=== PATIENT | female | born 1985 | race Caucasian/White ===

== ENCOUNTER 2023-05-08 19:31 | Emergency (ER) | payer MEDICAID, SELFPAY ==
[2023-05-08 19:32] VITALS: BP 120/78; PULSE 100; RESP 18; TEMP 36.8; O2SAT 97; BMI 45.6
--- NOTE | 2023-05-08 19:43 | XR_ITS ---
PROCEDURE INFORMATION: Exam: XR Chest Exam date and time: 05/08/2023 7:41 PM Age: 37 years old Clinical indication: On breathing; Patient HX: Lt sided chest pain on inspiration x 1 wk, nkt. Smoker, 0 CA HX; Additional info: Chest wall pain TECHNIQUE: Imaging protocol: Radiologic exam of the chest. Views: 2 views. COMPARISON: No relevant prior studies available. FINDINGS: Lungs: No consolidation. Pleural spaces: No pneumothorax. Heart/Mediastinum: No cardiomegaly. Bones/joints: Surgical clips overlying the right upper chest and neck. No acute fracture. IMPRESSION: No acute findings.
[2023-05-08 19:47] LABS: Microscopic, Urine URINE MICROSCOPIC (MICROSCOPIC)
[2023-05-08 19:55] LABS: Basophils # 0.1 K/mm3 (0-0.2); Basophils % 0.9 % (0.1-2.0); Eosinophils # 0.5 K/mm3 (0.0-0.4); Eosinophils % 5.2 % (0.1-12.0); Hematocrit 42.4 % (37.0-47.0); Hemoglobin 14.2 g/dL (12.2-16.2); Lymphocytes # 3.1 K/mm3 (0.7-4.5); Lymphocytes % 32.5 % (10-50); Mean Corpuscular HGB Conc 33.5 g/dL (31.8-35.4); Mean Corpuscular Hemoglobin 29.7 pg (27.0-31.2); Mean Corpuscular Volume 88.4 fl (81-99); Mean Platelet Volume 9.1 fl (7.4-10.4); Monocytes # 0.6 K/mm3 (0.1-1.0); Monocytes % 6.4 % (1.7-9.3); Neutrophils # 5.2 K/mm3 (1.8-7.8); Neutrophils % 55.1 % (37.0-80.0); Platelet Count 286 K/mm3 (142-424); Red Blood Count 4.79 M/mm3 (4.20-5.40); Red Cell Distribution Width 14.5 % (11.5-17.5); White Blood Count 9.4 K/mm3 (4.8-10.8)
[2023-05-08 19:56] LABS: Appearance,Urine CLEAR (Clear); Bilirubin,Urine Negative (Negative); Blood, Urine TRACE-I (Negative); Color,Urine YELLOW (Yellow); Glucose,Urine (UA) Negative (Negative); Ketones,Urine Negative (Negative); Leukocyte Esterase,Urine Negative (Negative); Nitrate,Urine Negative (Negative); PH,Urine 5.5 (5.0-8.5); Protein,Urine Negative (Negative); Specific Gravity, Urine 1.025 (1.005-1.030); Urobilinogen,Urine 0.2 EU/dl (0.2)
[2023-05-08 20:00] LABS: Urine Pregnancy, HCG Qual. Negative (Negative)
[2023-05-08 20:10] LABS: Anion Gap 14.2 mEq/L (5-15); Blood Urea Nitrogen 12 mg/dl (7-17); Carbon Dioxide 22 mmol/L (22.0-30.0); Chloride 106 mmol/L (98-107); Creatinine Clearance Estimated 109 mL/min (50-200); Estimated Glomerular Filt Rate 93 ml/min (>60); Potassium 4.2 mmoL/L (3.5-5.1); Sodium 138 mmol/L (136-145)
[2023-05-08 20:11] LABS: Alanine Aminotransferase 22 U/L (12-78); Albumin Level 4.4 g/dl (3.5-5.0); Albumin/Globulin Ratio 1.3 (1.1-1.8); Alkaline Phosphatase 66 U/L (38-126); Amylase 80 U/L (30-110); Aspartate Amino Transferase 39 U/L (14-36); Bilirubin,Total 0.3 mg/dl (0.2-1.3); Calcium 8.9 mg/dl (8.4-10.2); GFR (African American) 113 ML/MIN (>60); Globulin 3.3 g/dL (1.3-3.2); Glucose 107 mg/dl (74-100); Lipase 110 U/L (23-300); Total Protein,Serum 7.7 g/dl (6.3-8.2)
--- NOTE | 2023-05-08 20:15 | CT_ITS ---
PROCEDURE INFORMATION: Exam: CT Abdomen And Pelvis Without Contrast Exam date and time: 05/08/2023 8:25 PM Age: 37 years old Clinical indication: Abdominal pain; Patient HX: PT states upper left sided pain TECHNIQUE: Imaging protocol: Computed tomography of the abdomen and pelvis without contrast. Radiation optimization: All CT scans at this facility use at least one of these dose optimization techniques: automated exposure control; mA and/or kV adjustment per patient size (includes targeted exams where dose is matched to clinical indication); or iterative reconstruction. REPORTING DATA: Count of CT and Cardiac NM exams in prior 12 months: This patient has received 0 known CTs and 0 known cardiac nuclear medicine studies in the 12 months prior to the current study. COMPARISON: CR XR CHEST 2V 05/08/2023 7:41 PM FINDINGS: Liver: Hepatic steatosis. Gallbladder and bile ducts: Normal. No calcified stones. No ductal dilation. Pancreas: Normal. No ductal dilation. Spleen: Normal. No splenomegaly. Adrenal glands: Normal. No mass. Kidneys and ureters: Normal. No hydronephrosis. Stomach and bowel: Unremarkable. No obstruction. No mucosal thickening. Appendix: Postoperative changes consistent with appendectomy. Intraperitoneal space: Unremarkable. No free air. No significant fluid collection. Vasculature: Unremarkable. No abdominal aortic aneurysm. Lymph nodes: Unremarkable. No enlarged lymph nodes. Urinary bladder: Unremarkable as visualized. Reproductive: Unremarkable as visualized. Bones/joints: Thoracic spondylosis partially visualized. Soft tissues: Small fat filled umbilical hernia. IMPRESSION: No evidence of acute abnormality.
--- NOTE | 2023-05-08 20:15 | CT_ITS ---
PROCEDURE INFORMATION: Exam: CT Chest Without Contrast; Diagnostic Exam date and time: 05/08/2023 8:25 PM Age: 37 years old Clinical indication: Pain; Left-sided; Additional info: Left sided pain TECHNIQUE: Imaging protocol: Diagnostic computed tomography of the chest without contrast. Radiation optimization: All CT scans at this facility use at least one of these dose optimization techniques: automated exposure control; mA and/or kV adjustment per patient size (includes targeted exams where dose is matched to clinical indication); or iterative reconstruction. REPORTING DATA: Count of CT and Cardiac NM exams in prior 12 months: This patient has received 0 known CTs and 0 known cardiac nuclear medicine studies in the 12 months prior to the current study. COMPARISON: CR XR CHEST 2V 05/08/2023 7:41 PM FINDINGS: Lungs: Dependent hypoventilatory changes. No lobar consolidation. Pleural spaces: No pneumothorax. No pleural effusion. Heart: No cardiomegaly. No pericardial effusion. Lymph nodes: No enlarged lymph nodes. Vasculature: Limited evaluation without contrast. No aortic aneurysm. Bones/joints: Chronic changes. No acute fracture. Soft tissues: Extensive subcutaneous adipose extending beyond the field of view. IMPRESSION: No acute findings.
[2023-05-08 20:21] LABS: RBC,Urine Occasional #/hpf (0-3); WBC,Urine Occasional #/hpf (0-3)
--- NOTE | 2023-05-08 20:59 | ECG_ITS ---
APPROVED REPORT Exam: Resting ECG HR:69 bpm ECG Measurements Heart Rate 69 AXES CA 160 P 42 QRSd 91 QRS 89 QT 419 T 29 QTc 439 Conclusion SINUS RHYTHM NONSPECIFIC T-WAVE ABNORMALITY BORDERLINE ECG UNCONFIRMED REPORT Electronically signed by : Omar Fair MD 05/08/2023 21:44:31
[2023-05-08 21:34] LABS: Troponin I < 0.01 ng/ml (0.00-0.034)
--- NOTE | 2023-05-08 21:48 | HMH.EDGENADL ---
Discharge Plan Disposition Patient Disposition: Home, Self-Care Condition: Good Prescriptions Prescriptions: New methylprednisolone [Medrol (Navdeep)] 4 mg tablets,dose pack 4 mg PO BID Qty: 21 0RF metaxalone 800 mg tablet 800 mg PO QID PRN (Reason: muscle pain) Qty: 40 0RF hydrocodone-acetaminophen 5-325 mg tablet 1 tab PO Q8H PRN (Reason: pain) Qty: 10 0RF No Action losartan 50 mg tablet 50 mg PO DAILY Label Comments: TAKE 1 TABLET BY MOUTH ONCE DAILY celecoxib 200 mg capsule 200 mg PO DAILYP PRN (Reason: Pain) Label Comments: TAKE 1 CAPSULE BY MOUTH ONCE DAILY NEEDED FOR PAIN amlodipine 5 mg tablet 5 mg PO DAILY Label Comments: TAKE 1 TABLET BY MOUTH ONCE DAILY propranolol 10 mg tablet 10 mg PO DAILY Label Comments: TAKE 1 TABLET BY MOUTH ONCE DAILY meclizine 25 mg tablet 25 mg PO Q8HP PRN (Reason: Dizziness) Label Comments: TAKE 1 TABLET BY MOUTH EVERY 8 HOURS NEEDED Referrals Follow up/Referrals: Dl Hays [Primary Care Provider] - See instructions Activity Restrictions/Add. Instructions Additional Instructions/Restrictions: You have pain in the left rib. This is reproducible on exam on exam. There is no sob or increase heart rate to indicate a clot in your lung. If you get short of breath then come back to the immediately to the ER for CTA of the chest. Continue steroids and muscle relaxer and ibuprofen and Antelope only at home. He can be off work till next month Clinical Impressions Clinical Impression: Contusion of rib on left side, Acute abdominal pain in left flank, Chronic bronchitis, simple Stand Alone Forms Stand Alone Forms: Work/School Release Discharge ED Provider: Wanda Rodriguez Adult HPI General Chief complaint: PAIN Stated complaint: left side pain Time Seen by Provider: 05/08/23 20:45 Mode of Arrival: Ambulatory Source of Information: Patient Limitations: No Limitations Description of Symptoms (Recalled from ER Triage Doc. by RN): 37 F presents with left flank pain that radiates to her anterio-lateral chest wall. This started Saturday and has gotten worse. Patient reports nausea from the pain. Denies fever, chills, or vomiting. History of Present Illness HPI narrative: Patient is a 37-year-old female who is complaining left-sided chest pain rib pain going to the left flank. Patient's been having the symptoms of cough for the past 2 to 3 weeks. With the cough patient's been having some left-sided chest pain. Patient went to another hospital in [facility] was diagnosed with pleurisy. He was given steroids and inhaler. Patient stated that pain got better for the muscle of the abdomen but there is no more localized pain to the rib. She had no trauma or fall. She has been coughing a lot. Nonproductive no fever chills. She has no shortness of breath but hurts when she takes a deep breath Onset (ago): week(s) Location: chest, back and abdomen Radiation: back and abdomen Severity: moderate Severity scale (1-10): 8 Quality: stabbing and sharp Consistency: constant Relieving factors: none and movement Exacerbating factors: none Associated symptoms: chest pain and cough Treatments prior to arrival: NSAID Related Data Home Medications Medication Instructions Recorded Confirmed amlodipine 5 mg tablet 5 mg PO DAILY High blood pressure 05/08/23 05/08/23 celecoxib 200 mg capsule 200 mg PO DAILYP PRN Pain 05/08/23 05/08/23 losartan 50 mg tablet 50 mg PO DAILY High blood pressure 05/08/23 05/08/23 meclizine 25 mg tablet 25 mg PO Q8HP PRN Dizziness 05/08/23 05/08/23 propranolol 10 mg tablet 10 mg PO DAILY High blood pressure 05/08/23 05/08/23 Previous Rx's Medication Instructions Recorded hydrocodone 5 mg-acetaminophen 325 1 tab PO Q8H PRN pain #10 tabs 05/08/23 mg tablet metaxalone 800 mg tablet 800 mg PO QID PRN muscle pain #40 05/08/23 tabs methylprednisolone 4 mg tablets i
[2023-05-08 22:07] VITALS: BP 119/75; PULSE 91; RESP 20; TEMP 36.8
== END 2023-05-08 22:22 | disposition home or self-care (01) ==
PROVIDERS: Emergency Medicine; Emergency Provider Emergency Medicine; PCP Internal Medicine
DX: R10.12 Left upper quadrant pain (principal); S20.212A Contusion of left front wall of thorax, initial encounter; J41.0 Simple chronic bronchitis; R07.1 Chest pain on breathing; F17.210 Nicotine dependence, cigarettes, uncomplicated
CPT/HCPCS: 71046; 71250; 74176; 80053; 81001; 81025; 82150; 83690; 84484; 85025; 93005; 93041; 96361; 96374; 96375; 99285; J0131; J2405

== ENCOUNTER 2025-06-25 18:59 | Emergency (ER) | payer BC, SELFPAY ==
[2025-06-25 20:04] VITALS: BP 158/107; PULSE 76; RESP 17; TEMP 37; O2SAT 98; BMI 43.3
--- OUTSIDE RECORDS SUMMARY | 2025-06-25 20:21 | XMS_ITS | Encounter Summary ---
Author Organization [employer] ([place], [place], [place], [place]) Address [address] [place] [address] Care Team Providers Care Coal Picker Name Role Phone Unavailable Primary Care Provider Unavailabl e Encounter Details Date Type Department Care Team (Late st Contact Info) Description 06/30/2020 Transcribed Document [facility] Family Medicine [address] [place] [address] ProviderFrank MD [address] [place] [address] Social History Tobacco Use Types Packs/Day Years Used Date Smoking Tobacco: Never Assessed Comments Unknown Sex and Gender Information Value Date Recorded Sex Assigned at Female 05/15/2022 11:31 AM CDT Legal Sex Female 11:31 AM CDT Gender Identity Female 05/15/2022 11:31 AM CDT Sexual Orientation Not on file documented as of this encounter Miscellaneous Notes * [employer] Conversion Note - Historical ProviderMD - 06/30/2020 4:07 PM CDT [place] Suicide Severity Rating Scale (C-SSRS) Entered On: 06/30/2020 18:05 EDT Performed On: 06/30/2020 18:04 EDT by Fawn Karimi RN [place] Suicide Severity Rating Scale (C-SSRS) CSSRS Past Month Wish to be : No CSSRS Past Month Suicidal Thoughts : No CSSRS Lifetime Suicide Behavior : No Suicide Severity Rating Score : 0 Suicide Severity Rating : No Additional Care Required at this time Fawn Karimi RN - 06/30/2020 18:04 EDT documented in this encounter Plan of Treatment Not on file documented as of this encounter Visit Diagnoses Not on filedocumented in this encounter
--- OUTSIDE RECORDS SUMMARY | 2025-06-25 20:21 | XMS_ITS | Encounter Summary ---
Author Organization [employer] ([place], [place], [place], [place]) Address [address] [place] [address] Care Team Providers Care Hoe Runner Name Role Phone Unavailable Primary Care Provider Unavailabl e Encounter Details Date Type Department Care Team (Late st Contact Info) Description 07/06/2020 Transcribed Document [facility] Radiology [address] [place] [address] Ministerio Martinez MD [address] [place] [address] Dept. [place] [address] Social History Tobacco Use Types Packs/Day Years Used Date Smoking Tobacco: Never Assessed Comments Unknown Sex and Gender Information Value Date Recorded Sex Assigned at Female 05/15/2022 11:31 AM CDT Legal Sex Female 11:31 AM CDT Gender Identity Female 05/15/2022 11:31 AM CDT Sexual Orientation Not on file documented as of this encounter Miscellaneous Notes * [employer]ner Conversion Note - Ministerio Martinez MD - 07/06/2020 2:34 PM EDT CR Chest 1 Vw Portable Ordered: 06/30/2020 Modified Reason for Exam: soa 06/30/2020 18:37 07/06/2020 13:34 (MINISTERIO MARTINEZ MD-EMR) Reviewed by Provider, No further action required Electronically signed by [facility] Conversion Accountant [employer] at 03/07/2023 8:07 AM CDT documented in this encounter Plan of Treatment Not on file documented as of this encounter Visit Diagnoses Not on filedocumented in this encounter
--- OUTSIDE RECORDS SUMMARY | 2025-06-25 20:21 | XMS_ITS | Referral Summary ---
Author Organization [employer] ([place], [place], [place], [place]) Address [address] [place] [address] Care Team Providers Care Artist'S Representative Name Role Phone Unavailable Primary Care Provider Unavailabl e Social History Tobacco Use Types Packs/Day Years Used Date Smoking Tobacco: Never Assessed Comments Unknown Sex and Gender Information Value Date Recorded Sex Assigned at Female 05/15/2022 11:31 AM CDT Legal Sex Female 11:31 AM CDT Gender Identity Female 05/15/2022 11:31 AM CDT Sexual Orientation Not on file Plan of Treatment Not on file
--- OUTSIDE RECORDS SUMMARY | 2025-06-25 20:21 | XMS_ITS | Encounter Summary ---
Author Organization [employer] ([place], [place], [place], [place]) Address [address] [place] [address] Care Team Providers Care Animal Care Worker Name Role Phone Unavailable Primary Care Provider Unavailabl e Encounter Details Date Type Department Care Team (Late st Contact Info) Description 06/30/2020 Transcribed Document [facility] Family Medicine [address] [place] [address] ProviderFrank MD [address] [place] [address] Social History Tobacco Use Types [...] Historical ProviderMD - 06/30/2020 4:07 PM CDT ED Assessment Entered On: 06/30/2020 18:05 EDT Performed On: 06/30/2020 18:04 EDT by Fawn Karimi RN ED Quick Look Assessment Level of Consciousness : Alert, Awake Affect/Behavior : Appropriate, Cooperative, Anxious Orientation : Oriented x 4 Skin Temperature : Warm Skin Description : Dry Fawn Karimi RN - 06/30/2020 18:04 EDT ED General-Functional Assess Information Obtained From : Patient Preferred Communication Mode : Verbal Communication Barrier : None Primary Language : Uzbek Any Spiritual/Cultural Needs or Requests : No Currently in Unsafe Situation : No Fawn Karimi RN - 06/30/2020 18:04 EDT ED Psychosocial Assessment Affect/Behavior : Anxious Fawn Karimi RN - 06/30/2020 18:04 EDT Social Habits Smoking Status : Never (less than 100 in lifetime; none in last 30 days) Smokeless Tobacco Status : Never Desires Tobacco Cessation Calc : 0 Fawn Karimi RN - 06/30/2020 18:04 EDT Social History (As Of: 06/30/2020 18:05:50 EDT) Respiratory Breath Sounds Auscultated : Posterior, Anterior, Laterally Respiratory Assessment WDL : WDL with exceptions Cough : None Fawn Karimi RN - 06/30/2020 18:04 EDT Breath Sounds Assessment Grid All Lobes Breath Sounds : Clear CARMEN : Clear LLL : Clear RUL : Clear RML : Clear RLL : Clear Fawn Karimi RN - 06/30/2020 18:04 EDT Respiratory Pattern Description : Tachypnea Respiratory Assessment Comment : Pt C/O SOA and anxiety starting today, denies fever or chills. No distress noted. Fawn Karimi RN - 06/30/2020 18:04 EDT documented in this encounter Plan of Treatment Not on file documented as of this encounter Visit Diagnoses Not on filedocumented in this encounter
--- OUTSIDE RECORDS SUMMARY | 2025-06-25 20:21 | XMS_ITS | Clinical Summary ---
Author Organization [facility] Address [address] [place] [id number] Care Team Providers Care Process Chemist Name Role Phone Dl Hays MD Primary Care Provider [phone] Allergies No known active allergies Medications celecoxib (CeleBREX) 200 MG capsuleIndication s:Chronic bilateral low back pain without sciatica,Chronic bilateral thoracic back pain Take 1 capsule by mouth Daily. 30 capsule 1 5 Active cyclobenzaprine (FLEXERIL) 10 MG tabletIndications :Chronic bilateral low back pain without sciatica,Chronic bilateral thoracic back pain 0.5-1 tablet at bedtime as needed for pain 30 tablet 5 Active losartan (Cozaar) 50 MG tabletIndications :Primary hypertension Take 1 tablet by mouth Daily. 30 tablet 1 5 Active mirtazapine (Remeron) 15 MG tabletIndications :Current moderate episode of major depressive disorder without prior episode,Anxiety,P rimary insomnia Take 1 tablet by mouth Every Night. 30 tablet 1 5 Active Active Problems Problem Noted Date Diagnosed Date Primary insomnia 02/09/2025 Assessment & Plan (02/09/2025 5:21 PM EDT): Longstanding insomnia, even preceding her mood disorder of depression and anxiousness. Previous diagnosis of very borderline sleep apnea for which she was not given strong advice whether or whether or not to take his CPAP machine, not currently utilizing. She indicates she has never had any significant noted snoring or apneic symptoms by people who observe her sleep pattern. Plan initiate Remeron 15 mg nightly for purposes of benefiting her moods as well as hopefully augmenting her sleep pattern with sedating side effects. Sleep hygiene handout given to patient, along with verbal discussion of same. Reassess clinical response in 6 weeks. Advise if problems in the interim Chronic bilateral thoracic back pain 11/24/2024 Assessment & Plan (02/09/2025 5:19 PM EDT): Greater than 6 months history of lower thoracic through lower lumbar paraspinal muscular pain, less likely arthritic at this stage. Previously had lumbago several years ago which appear to be more degenerative in nature and which had resolved with a single epidural steroid injection. 2 months ago was prescribed Flexeril 10 mg nightly which in conjunction with her Celebrex 200 mg daily did give her some relief of pain. I have agreed to give her another month supply of Flexeril 10 mg nightly, advised that this is not to be used as a chronic but more temporary prescription. Assessment & Plan (11/24/2024 6:05 PM EST): 6 months months history of lower thoracic through lower lumbar paraspinal muscular pain, less likely arthritic at this stage. Previously had lumbago several years ago which appear to be more degenerative in nature and which had resolved with a single epidural steroid injection. Treat acute pain with heat, muscle rub cream, stretching, reinitiating Celebrex take with food, Flexeril 10 mg at 0.5-1 tablet nightly as needed caution sedation, and discussed recommendation for physical therapy which we will defer for now given she has not yet renewed her health insurance. Assess clinical response in 1 month and make further recommendation accordingly. Chronic bilateral low back pain without sciatica 11/24/2024 Assessment & Plan (02/09/2025 5:19 PM EDT): Greater than 6 months history of lower thoracic through lower lumbar paraspinal muscular pain, less likely arthritic at this stage. Previously had lumbago several years ago which appear to be more degenerative in nature and which had resolved with a single epidural steroid injection. 2 months ago was prescribed Flexeril 10 mg nightly which in conjunction with her Celebrex 200 mg daily did give her some relief of pain. I have agreed to give her another month supply of Flexeril 10 mg nightly, advised that this is not to be used as a chronic but more temporary prescription. Assessment & Plan (11/24/2024 6:05 PM EST): 6 months months history of lower thoracic through lower lumbar paraspinal muscular pain, less likely arthritic at this stage. Previously had lumbago several years ago which appear to be more degenerative in nature and which had resolved with a single epidural steroid injection. Treat acute pain with heat, muscle rub cream, stretching, reinitiating Celebrex take with food, Flexeril 10 mg at 0.5-1 tablet nightly as needed caution sedation, and discussed recommendation for physical therapy which we will defer for now given she has not yet renewed her health insurance. Assess clinical response in 1 month and make further recommendation accordingly. Anxiety 11/24/2024 Assessment & Plan (02/09/2025 5:17 PM EDT): Evaluated 2 months ago with moderate depression as well as some anxiety, present per her account for the prior 6 months. She was started on fluoxetine 20 mg daily which she discontinued after approximately 1 month indicating she did not have improvement in her symptoms and developed some irritability. Still having dysthymic anxious symptoms, and in conjunction with her chronic insomnia, will initiate a trial of Remeron 15 mg nightly, reassessing clinical response in 6 weeks. Advise if problems in the interim Assessment & Plan (11/24/2024 6:02 PM EST): Patient with moderate depression associated with very rare situational anxiety, symptoms present for the last 6 months. No history of prior depression or anxiety. Denies SI/HI. Initiating fluoxetine 20 mg daily, with delayed onset and benefits and potential onset and side effects discussed. Reassess clinically in 1 month advising if problems in the interim Current moderate episode of major depressive disorder without prior episode 11/24/2024 Assessment & Plan (02/09/2025 5:18 PM EDT): Evaluated 2 months ago with moderate depression as well as some anxiety, present per her account for the prior 6 months. She was started on fluoxetine 20 mg daily which she discontinued after approximately 1 month indicating she did not have improvement in her symptoms and developed some irritability. Still having dysthymic anxious symptoms, and in conjunction with her chronic insomnia, will initiate a trial of Remeron 15 mg nightly, reassessing clinical response in 6 weeks. Advise if problems in the interim Assessment & Plan (11/24/2024 6:03 PM EST): Patient with moderate depression associated with very rare situational anxiety, symptoms present for the last 6 months. No history of prior depression or anxiety. Denies SI/HI. Initiating fluoxetine 20 mg daily, with delayed onset and benefits and potential onset and side effects discussed. Reassess clinically in 1 month advising if problems in the interim Right arm pain 04/12/2023 Primary hypertension 04/11/2023 Assessment & Plan (02/09/2025 5:16 PM EDT): Satisfactory blood pressure control acutely, having note of significant elevation of blood pressure in the 190/100 range during ER evaluation 4 days ago. Continue for now her losartan 50 mg daily with monitoring Assessment & Plan (11/24/2024 5:59 PM EST): Borderline blood pressure control acutely, noted of stage II elevation by history during recent ER evaluation, blood pressure control unknown since last seen in the office in 03/2023, the time of her last prescription of antihypertensives, specifically amlodipine 5 mg daily and losartan 50 mg daily. Initially we will start her back on losartan 50 mg daily as monotherapy given minimal elevation of blood pressure acutely, patient to check blood pressures twice daily initially with ideal parameters and proper technique discussed. Reassess clinically at her follow-up visit in 1 month. CARRIE (obstructive sleep apnea) 04/11/2023 Marijuana abuse 04/11/2023 Assessment & Plan (11/24/2024 6:01 PM EST): Longstanding recreational marijuana use. Advised to discontinue for health and legal risk reduction. Cigarette smoker 04/11/2023 Assessment & Plan (02/09/2025 5:20 PM EDT): Longstanding smoker, currently 1 pack/day. Advised again of the need to stop smoking for health risk reduction Assessment & Plan (11/24/2024 6:05 PM EST): Longstanding cigarette smoker, currently 1 pack/day. Discussed again need for smoking cessation for health risk reduction. Not the optimal time however to pursue this given her significant depression as well as occasional anxiety. Will readdress once her mood control is improved. Abnormal Doppler ultrasound of carotid artery Overview (04/11/2023): 11/08/2021, Dr. Suzie Womack: 16 to 49% bilateral carotid stenoses with antegrade vertebral flow bilaterally History of echocardiogram 04/11/2023 Overview (04/11/2023): 11/07/2021, Dr. Suzie Womack: EF 60 to 65% with mild concentric LVH, mild RV enlargement, mild MR, mild TR with mild pulmonary hypertension Morbid (severe) obesity due to excess calories 0 07/26/2022 Assessment & Plan (11/24/2024 6:00 PM EST): Patient notable 29 pound weight loss without intent since 03/2023, with intervening weight pattern unknown. Patient has not been pursuing formally healthy lifestyle. Discussed need to improve her diet and exercise. She would be a candidate for medication assistance of weight loss assuming that her insurance would cover a GLP-1 agonist (currently reenrolling to update her insurance), or possibility of starting on phentermine once her blood pressure is under better control Resolved Problems Problem Noted Date Diagnosed Date Resolved Date Current severe episode of ma jazzy depressive disorder without psychotic features without prior episode 11/24/2024 11/24/2024 Encounters Date Type Department Care Team Description 05/26/2025 Refill [facility] [address] [place] [address] Dl Hays MD Primary hypertension; Current moderate episode of major depressive disorder without prior episode; Anxiety; Primary insomnia from Last 3 Months Immunizations Immunization Administration Dates Next Due COVID-19 (MODERNA) 1st,2nd,3rd Dose Monovalent 0 03/03/2021,01/31/2021 Hepatitis B Adolescent High Risk Infant 06/26/19 99 Td (TDVAX) 06/26/1999 Family History Medical History Relation Name Comments Hypertension Father Arthritis Mother Diabetes Mother Cancer Paternal Aunt Relation Name Status Comments Father Mother Paternal Aunt Social History Tobacco Use Types Packs/Day Years Used Date Smoking Tobacco: Every Day Cigarettes 1 25 Smokeless Tobacco: Never Tobacco Cessation:Ready to Q uit: Not Asked; Counseling Given: Not Answered Alcohol Use Standard Drinks/Week Comments Yes 0 (1 standard drink = 0.6 oz pur e alcohol) PHQ-2 Answer Date Recorded Retired PHQ-9: Brief Depression Severity Measure Score 0 04/12/2023 PHQ-2 Answer Date Recorded Patient Health Questionnaire-9 Score 22 11/24/2024 Comments No Sex and Gender Information Value Date Recorded Sex Assigned at Not on file Legal Sex Female 10:14 AM EDT Gender Identity Not on file Sexual Orientation Not on file Last Filed Vital Signs Vital Sign Reading Time Taken Comments Blood Pressure 136/84 02/09/2025 4:25 PM EDT Pulse 82 02/09/2025 4:25 PM EDT Temperature 36.8 C (98.2 F) 02/09/2025 4:25 PM EDT Respiratory Rate 18 11/24/2024 3:23 PM EST Oxygen Saturation 99% 02/09/2025 4:25 PM EDT Inhaled Oxygen Concentration - - Weight 131 kg (288 lb 6.4 oz) 02/09/2025 4:25 PM EDT Height 172.7 cm (5' 8 ) 02/09/2025 4:25 PM EDT Body Mass Index 43.85 02/09/2025 4:25 PM EDT Plan of Treatment Health Maintenance Due Date Last Done Comments Annual Gynecologic Pelvic an d Breast Exam 1983 Pneumococcal Vaccine 0-49 (1 of 2 - PCV) 2002 PAP SMEAR 2004 TDAP/TD VACCINES (2 - Tdap) 06/26/2009 06/26/1999 ANNUAL PHYSICAL 10/15/2017 MAMMOGRAM 2023 COVID-19 Vaccine (3 - 2023-2 5 season) 2025 03/03/2021, 01/31/2021 Postponed from 07/19/2024 (Patient Refused) INFLUENZA VACCINE 08/18/2025 HEPATITIS C SCREENING Completed 07/24/2022 Care Teams Process Chemist Relationship Specialty Start Date End Date Dl Hays MD [address] [place] [address] PCP - General Internal Medicine 10/09/17
--- OUTSIDE RECORDS SUMMARY | 2025-06-25 20:21 | XMS_ITS | Encounter Summary ---
Author Organization [employer] ([place], [place], [place], [place]) Address [address] [place] [address] Care Team Providers Care Primary Health Organisation Manager Name Role Phone Unavailable Primary Care Provider Unavailabl e Encounter Details Date Type Department Care Team (Late st Contact Info) Description 06/30/2020 Transcribed Document [facility] [place] Family Medicine [address] [place] [address] ProviderFrank MD [address] [place] [address] Social History Tobacco Use Types [...] Conversion Note - Historical ProviderMD - 06/30/2020 7:07 PM CDT Electronically signed by [facility] Conversion Special Services Coordinator Cerner at 03/07/2023 8:17 AM CDT documented in this encounter Plan of Treatment Not on file documented as of this encounter Visit Diagnoses Not on filedocumented in this encounter
--- OUTSIDE RECORDS SUMMARY | 2025-06-25 20:21 | XMS_ITS | Clinical Summary ---
Author Organization [employer] ([place], [place], [place], [place]) Address [address] [place] [address] Care Team Providers Care Training Consultant Name Role Phone Unavailable Primary Care Provider [...]
--- OUTSIDE RECORDS SUMMARY | 2025-06-25 20:21 | XMS_ITS | Clinical Summary ---
Author Organization [facility] Address [address] [place] [id number] Care Team Providers Care Circular Distributor Name Role Phone Dl Hays MD Primary Care Provider [phone] Allergies No known active allergies Medications propranolol (Inderal) 10 MG tablet Take 10 mg by mouth 1 (one) time each day. 04/19/2022 Active Active Problems Problem Noted Date Diagnosed Date Morbid obesity with body mass index (BMI) of 40. 0 or higher 07/26/2022 Family History Medical History Relation Name Comments No Known Problems Brother Hypertension Father Stroke Father COPD Mother No Known Problems Sister Relation Name Status Comments Brother Father Mother Sister Social History Tobacco Use Types Packs/Day Years Used Date Smoking Tobacco: Every Day Cigarettes 1 23.6 Started: 2001 Smokeless Tobacco: Never Tobacco Cessation:Ready to Q uit: Not Asked; Counseling Given: Not Answered Alcohol Use Standard Drinks/Week Comments Yes 0 (1 standard drink = 0.6 oz pur e alcohol) Socially CAGE ASSESSMENT Answer Date Recorded Cage unable to access Not on file 02/05/2025 Maximum number of drinks you had on a given occasion in the last month? 0 drinks 02/05/2025 How many alcoholic Beverages do you typically drink in a week? 0 - 7 per week 02/05/2025 Have you ever felt you should CUT down on your d rinking? 0 02/05/2025 Have you been ANNOYED by peo ple criticizing your drinking? 0 02/05/2025 Have you felt GUILTY about your drinking? 0 02/05/2025 Have you had a drink first t izzy in the morning (EYE-QA TEST LEAD) to steady your nerves or to get rid of a hangover? 0 02/05/2025 CAGE Questionnaire Score 0 025 Comments Unknown Sex and Gender Information Value Date Recorded Sex Assigned at Not on file Legal Sex Female 8:19 PM EDT Gender Identity Not on file Sexual Orientation Not on file Last Filed Vital Signs Vital Sign Reading Time Taken Comments Blood Pressure 149/98 02/05/2025 3:52 PM EDT Pulse 64 02/05/2025 3:52 PM EDT Temperature 36.7 C (98.1 F) 02/05/2025 2:15 PM EDT Respiratory Rate 16 02/05/2025 3:52 PM EDT Oxygen Saturation 94% 02/05/2025 3:52 PM EDT Inhaled Oxygen Concentration - - Weight 127 kg (280 lb) 02/05/2025 12:33 PM EDT Height 172.7 cm (5' 8 ) 02/05/2025 12:33 PM EDT Body Mass Index 42.57 02/05/2025 12:33 PM EDT Plan of Treatment Health Maintenance Due Date Last Done Comments [facility]-Infant/Child/Adol SDOH Screenings 1983 [facility]-Varicella Vaccines (1 of 2 - 13+ 2-dose series) 1996 HPV Vaccines (1 - 3-dose series) 1998 [facility]-DTaP,Tdap,and Td Vaccine s (2 - Tdap) 06/27/1999 06/26/1999 [facility]- SDOH Screenings 2001 [facility]-Adult SDOH Screenings 2001 [facility]-Hepatitis B Vaccines (1 of 3 - 19+ 3-dose series) 2002 [facility]-Pneumococcal Vaccine: Pediatrics (0 to 5 Years) and At-Risk Patients (6 to 49 Years) (1 of 2 - PCV) 2002 [facility]-Pap Smear 2004 [facility]-Cervical Cancer Screening 2013 [facility]-HPV/Cotest 2013 [facility]-Depression Screening 08/03/2023 08/03/2022 [id number]-[id number] Vaccine (3 - season) 2024 03/03/2021, 01/31/2021 [facility]-Influenza Vaccine (#1) 2025 [facility]-Zoster Vaccines (1 of 2) 2033 [facility]-HIV Screening Completed 07/24/2022 [facility]-Hepatitis C Screening Completed 07/24/2022 [facility]-Obesity Intervention Completed 08/03/2022 [facility]-HIB Vaccines Aged Out No longer e ligible based on patient's age to complete this topic [facility]-Hepatitis A Vaccines Aged Out No longer eligible based on patient's age to complete this topic [facility]-IPV Vaccines Aged Out No longer e ligible based on patient's age to complete this topic [facility]-Rotavirus Vaccines Aged Out No lo nger eligible based on patient's age to complete this topic Procedures Procedure Name Priority Date/Time Associated Diagnosis Comments HEPATITIS C ANTIBODY - ED W/REFLEX TO HCV QUANT PCR STAT 07/24/2022 10:02 AM EDT HIV 1/2 ANTIBODY/ANTIGEN SCREEN WITH REFLEX TO HIV I/II DIFFERENTIATION STAT 07/24/2022 10:02 AM EDT from Last 3 Months or Most Recently Relevant to Health Maintenance Results * HIV 1 & 2 Antibody/Antigen Screen (07/24/2022 10:02 AM EDT) HIV 1 & 2 Antibody/Anti gen Screen Nonreactive Nonreactive 07/24/2022 12:15 PM EDT [facility] Blood Venous blood specimen / Unknown Venipuncture / Unknown 07/24/2022 10:02 AM EDT 07/24/2022 10:11 AM EDT us Eliazar Ramirez MD LAB BLOOD ORDERABLES Final Result Performing Organization Address City/[facility]/ZIP Co de Phone Number [facility] [address] [place] [address] * Hepatitis C Antibody - ED (07/24/2022 10:02 AM EDT) Hepatitis C Antibody Negative Negative 07/24/2022 12:15 PM EDT [facility] Blood Venous blood specimen / Unknown Venipuncture / Unknown 07/24/2022 10:02 AM EDT 07/24/2022 10:11 AM EDT us Eliazar Ramirez MD LAB BLOOD ORDERABLES Final Result [facility] [address] [place] [address] from Last 3 Months or Most Recently Relevant to Health Maintenance Care Teams Circular Distributor Relationship Specialty Start Date End Date Dl Hays MD [address] [place] [address] PCP - General 10/18/21
--- OUTSIDE RECORDS SUMMARY | 2025-06-25 20:21 | XMS_ITS | Encounter Summary ---
[facility] Organization [facility] Address [address] [place] [id number] Care Team Providers Care Bar Useful Or Busser Name Role Phone Dl Hays MD Primary Care Provider [phone] Reason for Visit * Reason Onset Date Comments Med Refill 05/26/2025 Encounter Details Date Type Department Care Team (Late st Contact Info) Description 05/26/2025 Refill [facility] [address] [place] [address] [place] [address] Dl Hays MD [address] [place] [address] [place] [address] Primary hypertension; Current moderate episode of major depressive disorder without prior episode; Anxiety; Primary insomnia Social History Tobacco Use Types Packs/Day Years Used Date Smoking Tobacco: Every Day Cigarettes 1 25 Smokeless Tobacco: Never Alcohol Use Standard Drinks/Week Comments Yes 0 [...] on file Sexual Orientation Not on file documented as of this encounter Miscellaneous Notes * Telephone Encounter - Azra Ramsay RegSched Rep - 05/26/2025 11:53 AM EDT Caller: Nanette Keita Relationship: Self Best call back number: [phone] Requested Prescriptions: Requested Prescriptions Pending Prescriptions Disp Refills losartan (Cozaar) 50 MG tablet 30 tablet 1 Sig: Take 1 tablet by mouth Daily. mirtazapine (Remeron) 15 MG tablet 30 tablet 1 Sig: Take 1 tablet by mouth Every Night. Pharmacy where request should be sent: [facility] [address] [place] [address] [facility] [phone] [facility] [phone] FX Last office visit with prescribing clinician: 02/09/2025 Last telemedicine visit with prescribing clinician: Visit date not found Next office visit with prescribing clinician: Visit date not found Additional details provided by patient: BEEN OUT SINCE 05/22/25. Does the patient have less than a 3 day supply: [x] Yes [] No Would you like a call back once the refill request has been completed: [] Yes [x] No If the office needs to give you a call back, can they leave a voicemail: [] Yes [x] No Forrest Montez Rep 05/26/25 11:54 EDT documented in this encounter Plan of Treatment Not on file documented as of this encounter Visit Diagnoses Diagnosis Primary hypertension Unspecified essential hypertension Current moderate episode of major depressive disorder without prior episode Anxiety Anxiety state, unspecified Primary insomnia Persistent disorder of initiating or maintaining sleep documented in this encounter Care Teams Bar Useful Or Busser Relationship Specialty Start Date End Date Dl Hays MD [address] [place] [address] PCP - General Internal Medicine 10/09/17 documented as of this encounter
--- OUTSIDE RECORDS SUMMARY | 2025-06-25 20:21 | XMS_ITS | Encounter Summary ---
Author Organization [employer] ([place], [place], [place], [place]) Address [address] [place] [address] Care Team Providers Care Fruit Or Nut Farmworker Name Role Phone Unavailable Primary Care Provider Unavailabl e Encounter Details Date Type Department Care Team (Late st Contact Info) Description 06/30/2020 Transcribed Document [facility] [address] [place] [address] ProviderFrank MD [address] [place] [address] Social History Tobacco Use Types [...] Conversion Note - Historical ProviderMD - 06/30/2020 7:16 PM CDT ED Event Note Entered On: 06/30/2020 19:17 EDT Performed On: 06/30/2020 19:16 EDT by Fawn Karimi RN ED Event Note ED Event Date/Time : 06/30/2020 19:09 EDT ED Event Location : Assigned room ED Description of Event : Pt resued CT scan, states I really want to go home. I explained the risks to patient. Pt agrees to sign out AMA. Provider notified. Fawn Karimi RN - 06/30/2020 19:16 EDT documented in this encounter Plan of Treatment Not on file documented as of this encounter Visit Diagnoses Not on filedocumented in this encounter
--- OUTSIDE RECORDS SUMMARY | 2025-06-25 20:21 | XMS_ITS | Encounter Summary ---
Author Organization [employer] ([place], [place], [place], [place]) Address [address] [place] [address] Care Team Providers Care Cloth Shearer Name Role Phone Unavailable Primary Care Provider Unavailabl e Encounter Details Date Type Department Care Team (Late st Contact Info) Description 06/30/2020 Transcribed Document [facility] Family Medicine [address] [place] [address] ProviderFrank MD [address] [place] [address] Social History Tobacco Use Types Packs/Day Years Used Date Smoking Tobacco: Never Assessed Comments Unknown Sex and Gender Information Value Date Recorded Sex Assigned at Female 05/15/2022 11:31 AM CDT Legal Sex Female 11:31 AM CDT Gender Identity Female 05/15/2022 11:31 AM CDT Sexual Orientation Not on file documented as of this encounter Miscellaneous Notes * Cerner Conversion Note - Frank ProviderMD - 06/30/2020 4:07 PM CDT ED Triage Entered On: 06/30/2020 16:23 EDT Performed On: 06/30/2020 16:13 EDT by Victorino Ayers RN ED Triage Across the Room Chief Complaint : Patient reports SOA 2/2 anxiety attack 1.5 hours ago, and report taking a reduced dose of a precribed antianxiety med, but forgets the medication name. Patient reports being hospitalized 3 weeks ago in [facility] for the same symptoms. Triage Date/Time : 06/30/2020 16:13 EDT Victorino Ayers RN - 06/30/2020 16:13 EDT Victorino Ayers RN - 06/30/2020 16:13 EDT DCP GENERIC CODE Tracking Group : [facility] ED [place] Victorino Ayers RN - 06/30/2020 16:13 EDT Tracking Acuity : 3 - Urgent Karimi, Fawn, RN - 06/30/2020 18:34 EDT Mode of Arrival : Stretcher Transported to ED by : Ambulance/ALS EMS Service : [facility] [place] To Room Via : Stretcher Accompanied By : Mother Height & Weight : Document ED Reason for Visit : Document Victorino Ayers RN - 06/30/2020 16:13 EDT Infectious Disease History Has the patient ever been tested for COVID-19? : No, Patient stated Does patient have symptoms of COVID-19? : No COVID19 Screening : No Experiencing Infectious Disease Symptoms : No symptoms Physical contact outside [place] in the last 30 days : No Infectious Disease History : None Tuberculosis Symptoms : None Victorino Ayers RN - 06/30/2020 16:13 EDT Diagnosis Control ED (As Of: 06/30/2020 16:23:01 EDT) Diagnoses(Active) Anxiety Date: 06/30/2020 ; Diagnosis Type: Reason For Visit ; Confirmation: Complaint of ; Clinical Dx: Anxiety ; Classification: Medical ; Clinical Service: Non-Specified ; Code: PNED ; Probability: 0 ; Diagnosis Code: [id number] SOA - Shortness of Air Date: 06/30/2020 ; Diagnosis Type: Reason For Visit ; Confirmation: Complaint of ; Clinical Dx: SOA - Shortness of Air ; Classification: Medical ; Clinical Service: Non-Specified ; Code: PNED ; Probability: 0 ; Diagnosis Code: [id number] ED Height and Weight Height Source : Stated Height Entry Format : [place] Height, Feet : 5 ft(Converted to: 152 cm, 60 Inch) Height, Inches : 8 Inch(Converted to: 0 ft 8 Inch, 20.32 cm) Clinical Height : 172.72 cm Weight Source, ED : Stated [place] Body Weight (IBW) : 63.45 kg Victorino Ayres RN - 06/30/2020 16:13 EDT Estimated Weight Type of Weight Measurement Est : [place] Weight, est lb : 300 lb(Converted to: 136 kg) Weight, est oz : 0 oz Estimated Clinical Dosing Weight : 136.36 kg Victorino Ayers RN - 06/30/2020 16:13 EDT ED Influenza/Pneumoccocal Vaccine Influenza Immunization, Current Season : No Pneumonia Immunization Received : No Previous Vaccines from Immunization Schedule : No qualifying data available. Victorino Ayers RN - 06/30/2020 16:13 EDT documented in this encounter Plan of Treatment Not on file documented as of this encounter Visit Diagnoses Not on filedocumented in this encounter
--- OUTSIDE RECORDS SUMMARY | 2025-06-25 20:21 | XMS_ITS | Encounter Summary ---
Author Organization [employer] ([place], [place], [place], [place]) Address [address] [place] [address] Care Team Providers Care Electric Distribution Engineer Name Role Phone Unavailable Primary Care Provider Unavailabl e Encounter Details Date Type Department Care Team (Late st Contact Info) Description 06/30/2020 Transcribed Document [facility] Family Medicine [address] [place] [address] ProviderFrank MD [address] [place] [address] Social History Tobacco Use Types [...] Conversion Note - Frank ProviderMD - 06/30/2020 7:20 PM CDT ED Discharge Entered On: 06/30/2020 19:22 EDT Performed On: 06/30/2020 19:20 EDT by Fawn Karimi RN Discharge Process Patient Disposition : AMA/Elope/LWBS Personal Belongings With Patient : Yes Patient Education Completed : Yes Nursing Documentation Completed : Yes Fawn Karimi RN - 06/30/2020 19:20 EDT LWBS/Elopement/AMA Patient leaves after medical screening : Seen Asked to Sign AMA Form : Form signed Provider Notified : Yes Provider Notified Name : NAVEEN DOW PA-EMR Provider Notified Time : 06/30/2020 19:09 EDT AMA Assessment/Discussion Comment : Pt signed out AMA 190. Fawn Karimi RN - 06/30/2020 19:20 EDT Electronically signed by [facility] Conversion Dog Food Dough Mixer Cerner at 03/07/2023 8:04 AM CDT documented in this encounter Plan of Treatment Not on file documented as of this encounter Visit Diagnoses Not on filedocumented in this encounter
--- OUTSIDE RECORDS SUMMARY | 2025-06-25 20:21 | XMS_ITS | Encounter Summary ---
Author Organization [employer] ([place], [place], [place], [place]) Address [address] [place] [address] Care Team Providers Care Scenic Arts Supervisor Name Role Phone Unavailable Primary Care Provider Unavailabl e Encounter Details Date Type Department Care Team (Late st Contact Info) Description 06/30/2020 Transcribed Document [facility] Family Medicine [address] [place] [address] ProviderFrank MD [address] [place] [address] Social History Tobacco Use Types [...] Conversion Note - Historical ProviderMD - 06/30/2020 7:03 PM CDT Patient: NANETTE KEITA Age: 34 years Sex: Female : 1985 Associated Diagnoses: Dyspnea; Anxiety; SOA - Shortness of Air Author: NAVEEN DOW PA-EMR Basic Information History source: Patient. Additional information: Chief Complaint from Nursing Triage Note : Chief Complaint 06/30/2020 16:13 EDT Chief Complaint Patient reports SOA 2/2 anxiety attack 1.5 hours ago, and report taking a reduced dose of a precribed antianxiety med, but forgets the medication name. Patient reports being hospitalized 3 weeks ago in [facility] for the same symptoms. . History of Present Illness The patient presents with difficulty breathing, cough, wheezing and respiratory problem. The onset was 20 minutes ago. The course/duration of symptoms is worsening. Degree at onset mild. Degree at present moderate. The Exacerbating factors is exertion. The Relieving factors is rest. Risk factors consist of asthma. Prior episodes: rare. Therapy today: none. Associated symptoms: none. Ms Keita is a 34-year-old female with a history of asthma tells me that she works at [employer] and is required to wear a mask all day at work he suddenly has been having a hard time breathing feels like she is always short of breath and can't breathe she denies any known sick contacts denies any fever or chills denies any hemoptysis. Review of Systems Constitutional symptoms: Negative except as documented in HPI. Skin symptoms: Negative except as documented in HPI. Eye symptoms: Negative except as documented in HPI. ENMT symptoms: Negative except as documented in HPI. Respiratory symptoms: Shortness of breath. Cardiovascular symptoms: Negative except as documented in HPI. Gastrointestinal symptoms: Negative except as documented in HPI. Genitourinary symptoms: Negative except as documented in HPI. Musculoskeletal symptoms: Negative except as documented in HPI. Neurologic symptoms: Negative except as documented in HPI. Psychiatric symptoms: Negative except as documented in HPI. Endocrine symptoms: Negative except as documented in HPI. Hematologic/Lymphatic symptoms: Negative except as documented in HPI. Allergy/immunologic symptoms: Negative except as documented in HPI. Additional review of systems information: All other systems reviewed and otherwise negative. Health Status Allergies: Allergic Reactions (Selected) No Known Allergies. Medications: (Selected) , per nurse's notes. Immunizations: Up to date. Past Medical/ Family/ Social History Medical history Reviewed as documented in chart. Surgical history: No active procedure history items have been selected or recorded., Reviewed as documented in chart. Family history: No family history items have been selected or recorded., Reviewed as documented in chart. Social history: Social & Psychosocial Habits No Data Available , Reviewed as documented in chart. Problem list: Per nurse's notes. Physical Examination Vital Signs Vital Signs/Vital Measures 06/30/2020 18:03 EDT Heart Rate Monitored 71 bpm Respiratory Rate 20 Breaths/Min Oxygen Saturation 98 % Oxygen Therapy Mode Room air 06/30/2020 17:30 EDT Systolic Blood Pressure 128 mmHg Diastolic Blood Pressure 69 mmHg Heart Rate Monitored 60 bpm Respiratory Rate 12 Breaths/Min LOW Oxygen Saturation 98 % Oxygen Therapy Mode Room air 06/30/2020 17:26 EDT Systolic Blood Pressure 134 mmHg (Unauth) Diastolic Blood Pressure 74 mmHg (Unauth) Mean Arterial Pressure (MAP)-BMDI 100 (Unauth) Heart Rate Monitored 57 bpm LOW (Unauth) Respiratory Rate 16 Breaths/Min (Unauth) Oxygen Saturation 98 % (Unauth) Oxygen Therapy Mode Room air (Unauth) . Measurements 06/30/2020 16:13 EDT Height Source Stated Height Entry Format Mobile Height/Length, [place] (ft) 5 ft Height/Length [place] 8 Inch CLINICALHEIGHT 172.72 cm Type of Weight Measurement. Mobile Weight, est lb 300 lb Weight, est oz 0 oz Estimated Clinical Dosing Weight 136.36 kg [place] Body Weight 63.45 kg Weight Source, ED Stated . Oxygen Saturation 06/30/2020 18:03 EDT Oxygen Saturation 98 % 06/30/2020 17:30 EDT Oxygen Saturation 98 % 06/30/2020 17:26 EDT Oxygen Saturation 98 % (Unauth) . General: Alert, no acute distress, non-toxic appearence; looks comfortable sitting in bed, Not ill-appearing, Skin: Warm. Head: Normocephalic. Neck: Supple, no JVD. Eye: Normal conjunctiva. Ears, nose, mouth and throat: Oral mucosa moist. Cardiovascular: Regular rate and rhythm, No murmur, Normal peripheral perfusion. Respiratory: Lungs are clear to auscultation, respirations are non-labored, breath sounds are equal, Symmetrical chest wall expansion. Gastrointestinal: Soft, Nontender, Non distended, Normal bowel sounds, No organomegaly. Back: Normal range of motion. Musculoskeletal: Normal ROM. Neurological: Alert and oriented to person, place, time, and situation, No focal neurological deficit observed. Lymphatics: No lymphadenopathy. Psychiatric: Cooperative, appropriate mood & affect. Medical Decision Making Differential Diagnosis: Pneumonia, chronic obstructive pulmonary disease, asthma, upper respiratory infection. Documents reviewed: Emergency department nurses' notes, emergency department records, prior records. Electrocardiogram: Normal sinus rhythm, No ST changes, no ectopy, normal MT & QRS intervals. Results review: Lab results : Lab Results 06/30/2020 17:04 EDT Sodium Level 139 mmol/L Potassium Level 3.4 mmol/L LOW Chloride Level 110 mmol/L Carbon Dioxide Level 22 mmol/L Anion Gap 10 Glucose Level 96 mg/dL Blood Urea Nitrogen 11 mg/dL Creatinine Level 0.83 mg/dL eGFR >60 mL/min/1.73m2 eGFR NonAfrican >60 mL/min/1.73m2 Bun/Creatinine 13.3 Calcium Level 8.7 mg/dL Protein Total 7.1 Gram/dL Albumin Level 3.4 Gram/dL Globulin 3.7 Gram/dL A/G Ratio 0.9 LOW Bilirubin Total 0.3 mg/dL Alk Phos 56 Units/Liter AST 11 Units/Liter ALT 20 Units/Liter Troponin I Ultra <0.015 ng/mL WBC 9.3 K/uL RBC 4.27 Million/uL Hgb 13.4 Gram/dL Hct 39.0 % MCV 91.3 fL MCH 31.4 pg MCHC 34.4 Gram/dL Platelet Count 231 K/uL MPV 10.7 fL RDW 12.8 % Neut % 60.7 % Neut # 5.66 K/uL Lymph % 27.3 % Lymph # 2.55 K/uL [place] % 6.6 % [place] # 0.62 K/uL Eos % 4.1 % Eos # 0.38 K/uL Baso % 1.1 % HI Baso # 0.10 K/uL HI Slide Review No IG# 0 x10(3)/uL IG% 0 % D Dimer Quant 576 ng/mL HI . Radiology results: Radiology Results (Last 48 hours) [id number] -- 06/30/2020 16:07 CR Chest 1 Vw Portable (06/30/2020 17:14) Result: PORTABLE CHEST 06/30/2020 4:38 PM HISTORY: Fever, shortness of breath, smoker.COMPARISON: None.FINDINGS: The heart is normal in size . The mediastinum isunremarkable . Prominent perihilar interstitial changes are noted,likely secondary to vascular congestion . There is no pneumothorax .The osseous structures are unremarkable . IMPRESSION: Prominent interstitial changes are likely secondary tovascular congestion . Continued follow-up is recommended . Images reviewed, interpreted, and dictated by Dr. Yamilex Rao.Transcribed by Lissy Jon (R), Merari (R).I have personally viewed, interpreted and dictated the examination. Ihave read and agree with the above final transcribed report. . Reexamination/ Reevaluation Notes: Given exam, vitals are all stable; her d-dimer was slightly elevated I was wanting to obtain CTA to ensure she does not have pulmonary embolism but she refuses to have the stone and she is going to sign out AGAINST MEDICAL ADVICE I had a long discussion with her and her mom that I was extremely concerned and would encourage her to have the CTA she states she will follow-up with her primary care tomorrow and wants to leave she is alert and oriented ??4 I cannot keep her from signing out against her will even if it is not the best judgment; he was given explicit instructions on return precautions if worsens any further concerns return to the emergency department or the nearest emergency department. Impression and Plan Diagnosis Dyspnea - Discharge, Emergency medicine, Medical Complaint of Anxiety - Reason For Visit, Medical Dyspnea - Discharge, Emergency medicine, Medical Complaint of SOA - Shortness of Air - Reason For Visit, Medical Plan Condition: Stable. Disposition: Patient care transitioned to: Left AGAINST MEDICAL ADVICE. Patient was given the following educational materials: Shortness of Breath, Adult. Follow up with: IDA MENG Within 2 to 3 days. Counseled: Patient, Family. Electronically signed by Jet Pringle Conversion Enrollment Eligibility Representative Cerner at 03/07/2023 8:03 AM CDT documented in this encounter Plan of Treatment Not on file documented as of this encounter Visit Diagnoses Not on filedocumented in this encounter
[2025-06-25 20:25] LABS: Microscopic, Urine URINE MICROSCOPIC (MICROSCOPIC)
[2025-06-25 20:30] LABS: Bilirubin,Urine Negative (Negative); Color,Urine YELLOW (Yellow); Glucose,Urine (UA) Negative (Negative); Ketones,Urine Negative (Negative); Leukocyte Esterase,Urine Negative (Negative); PH,Urine 6.5 (5.0-8.5); Protein,Urine Negative (Negative); Specific Gravity, Urine 1.015 (1.005-1.030); Urobilinogen,Urine 0.2 EU/dl (0.2)
--- NOTE | 2025-06-25 20:48 | XR_ITS ---
PROCEDURE INFORMATION: Exam: XR Pelvis Exam date and time: 06/25/2025 10:11 PM Age: 39 years old Clinical indication: Hip pain; Right hip; Additional info: Right hip tenderness TECHNIQUE: Imaging protocol: Radiologic exam of the pelvis. Views: 1 or 2 view. Total images: 2 COMPARISON: CT ABDOMEN PELVIS WO CON 05/08/2023 8:25 PM FINDINGS: Bones/joints: Degenerative changes lower lumbar spine, please see separate CT report. Pelvic ring is maintained. No fracture or joint dislocation. Symmetric mild degenerative changes bilateral hips and SI joints. No concerning bone lesions. Soft tissues: Unremarkable soft tissues. IMPRESSION: 1. No acute osseous abnormality. 2. Symmetric mild degenerative changes bilateral hips and SI joints. 3. Please see separate lumbar spine CT.
--- NOTE | 2025-06-25 20:48 | CT_ITS ---
PROCEDURE INFORMATION: Exam: CT Lumbar Spine Without Contrast Exam date and time: 06/25/2025 10:10 PM Age: 39 years old Clinical indication: Low back pain; Additional info: Back pain, midline spinal tenderness TECHNIQUE: Imaging protocol: Computed tomography of the lumbar spine without contrast. Total images: 357 Radiation optimization: All CT scans at this facility use at least one of these dose optimization techniques: automated exposure control; mA and/or kV adjustment per patient size (includes targeted exams where dose is matched to clinical indication); or iterative reconstruction. COMPARISON: CT LUMBAR SPINE WO CON 06/25/2025 10:10 PM FINDINGS: Bones/joints: Five non rib-bearing lumbar vertebral segments. Vertebral body height and alignment is maintained. Moderate degenerative disc disease L5-S1 with disc phenomena, disc space narrowing and endplate osteophyte formation. Associated vertebral body sclerosis. Disc space heights are otherwise relatively well maintained with minor endplate degenerative changes. No concerning bone lesions. Multilevel moderate degenerative disc disease in lower thoracic spine. Facet joints are appropriately aligned. Mild degenerate facet joint spondylosis L5-S1. Mild degenerative changes bilateral SI joints. No concerning bone lesions. Minimal lumbar levocurvature. Spinal canal contents are nearly obscured by attenuation artifact. Suspect disc bulge or central disc herniation L5-S1, extremely limited in visualization. No critical spinal canal stenosis. Bilateral neural foraminal encroachment L5-S1. Vasculature: Nonaneurysmal abdominal aorta with minor scattered calcifications. Lymph nodes: No retroperitoneal hematoma or lymphadenopathy. Soft tissues: No paraspinal mass, fluid, or Yasmin. Notes: Bone detail limited by attenuation artifact referable to large body habitus. IMPRESSION: 1. No acute lumbar fracture or traumatic subluxation. 2. Moderate degenerative disc disease L5-S1 with poorly visualized disc bulge or small central disc herniation. 3. Mild degenerate facet joint spondylosis L5-S1 4. Moderate multilevel degenerative disc disease lower thoracic spine. 5. Recommend follow-up nonemergent MRI of the lumbar spine.
--- NOTE | 2025-06-25 20:51 | HMH.EDGENADL ---
Discharge Plan Disposition Patient Disposition: Home, Self-Care Condition: Good Prescriptions Prescriptions: New sulfamethoxazole-trimethoprim [Bactrim DS] 800-160 mg tablet 1 tab PO BID 5 Days Qty: 10 0RF methocarbamol 500 mg tablet 500 mg PO BID Qty: 30 0RF lidocaine 5 % adhesive patch,medicated 2 patch topical Q24H Qty: 15 0RF Rx Instructions: leave on most painful area for up to 12 hrs No Action losartan 50 mg tablet 50 mg PO DAILY Patient Comments: TAKE 1 TABLET BY MOUTH ONCE DAILY celecoxib 200 mg capsule 200 mg PO DAILYP PRN (Reason: Pain) Patient Comments: TAKE 1 CAPSULE BY MOUTH ONCE DAILY NEEDED FOR PAIN amlodipine 5 mg tablet 5 mg PO DAILY Patient Comments: TAKE 1 TABLET BY MOUTH ONCE DAILY propranolol 10 mg tablet 10 mg PO DAILY Patient Comments: TAKE 1 TABLET BY MOUTH ONCE DAILY meclizine 25 mg tablet 25 mg PO Q8HP PRN (Reason: Dizziness) Patient Comments: TAKE 1 TABLET BY MOUTH EVERY 8 HOURS NEEDED methylprednisolone [Medrol (Navdeep)] 4 mg tablets,dose pack 4 mg PO BID Qty: 21 0RF metaxalone 800 mg tablet 800 mg PO QID PRN (Reason: muscle pain) Qty: 40 0RF hydrocodone-acetaminophen 5-325 mg tablet 1 tab PO Q8H PRN (Reason: pain) Qty: 10 0RF Referrals Follow up/Referrals: Jason Chamberlain MD [Staff Physician, Pain Management] - See instructions Dl Hays [Primary Care Provider, Medical] - See instructions Activity Restrictions/Add. Instructions Additional Instructions/Restrictions: Take the antibiotics as prescribed for your urinary tract infection. I have sent you with lidocaine patches and robaxin which you can take in addition to tylenol and ibuprofen for your symptoms. I have sent you with lidocaine patches as well. I have sent you with a referral to pain management which they can help you with your herniated disc. Return to the emergency department for any acute or worsening symptoms. Clinical Impressions Clinical Impression: Urinary tract infection, Acute herniated disc Stand Alone Forms Stand Alone Forms: Work/School Release Instructions Patient Instructions: DI for Low Back Pain Print Language Print Language: Syriac Discharge ED Provider: Khushbu Jacobo Adult [facility] General Chief complaint: Back Pain/Injury Stated complaint: Lower right side pain Time Seen by Provider: 06/25/25 20:36 Mode of Arrival: Ambulatory Source of Information: Patient Description of Symptoms (Recalled from ER Triage Doc. by RN): Patient to ED with complaints to lower back pain x1 month. Patient states she tried to self medicate at home with leftover muscle relaxers and pain medication but denies relief. She states that she had to miss work yesterday due to pain to which she never does. Patient denies pain/frequency with urination. History of Present Illness HPI narrative: Patient is an otherwise healthy 39-year-old female who presented to the emergency department with lower back pain for a month. Patient states that she has been diagnosed with a herniated disc in the past. Patient reports that her pain over the last 24 hours got worse especially with ambulating. Patient states that she has little pain at rest. Patient denies any numbness or weakness. Patient denies any urinary or bowel issues. Patient denies any history of IV drug use. Patient denies any fevers. Patient does report some urinary frequency and dysuria. Patient denies any abdominal pain. Patient denies any recent trauma. Related Data Home Medications ?Medication ?Instructions ?Recorded ?Confirmed amlodipine 5 mg tablet 5 mg PO DAILY High blood pressure 05/08/23 05/08/23 celecoxib 200 mg capsule 200 mg PO DAILYP PRN Pain 05/08/23 05/08/23 losartan 50 mg tablet 50 mg PO DAILY High blood pressure 05/08/23 05/08/23 meclizine 25 mg tablet 25 mg PO Q8HP PRN Dizziness 05/08/23 05/08/23 propranolol 10 mg tablet 10 mg PO DAILY High blood pressure 05/08/23 05/08/23 Previous Rx's ?Medication ?Instructions ?Recorded hydrocodone 5 mg-acetaminophen 325 1 tab PO Q8H PRN pain #10 tabs 05/08/23 mg tablet metaxalone 800 mg tablet 800 mg PO QID PRN muscle pain #40 05/08/23 tabs methylprednisolone 4 mg tablets in 4 mg PO BID 2 doses #21 tabs 05/08/23 a dose pack (Medrol (Navdeep)) lidocaine 5 % topical patch 2 patch topical Q24H #15 ea 06/26/25 methocarbamol 500 mg tablet 500 mg PO BID #30 tabs 06/26/25 sulfamethoxazole 800 1 tab PO BID 5 days #10 tabs 06/26/25 mg-trimethoprim 160 mg tablet (Bactrim DS) Allergies Allergy/AdvReac Type Severity Reaction Status Date / Time No Known Allergies Allergy Verified 05/08/23 19:42 [facility] Disclaimer: The information contained in this section may have been updated after the patient was seen, as this information can be updated by other users. Family History Other No significant family history Social History (Updated 05/08/23 @ 22:11 by Wanda Rodriguez MD) Smoking Status: Current every day smoker alcohol intake: never current occupational status: employed Travel in the last 8 weeks?: Outside the [facility] Have you lived/traveled outside [place] in past 30 days?: No Contact w/someone who lives/traveled outside [place] past 30 days?: No Exposure to someone with infectious disease in past 14 days?: No Do you have a fever (greater than 100.4 F or 38 C)?: No Have you tested positive for COVID-19?: No Exposed to someone with COVID-19 in past 14 days?: No Do you have a sore throat?: No Do you have a cough?: No Do you have any weakness?: No Do you have any diarrhea?: No Are you experiencing any unusual bleeding?: No Do you have any muscle aches/pain?: No Do you have any abdominal pain?: No Are you experiencing loss of taste or smell?: No ROS Obtained: Yes All systems reviewed & no additional complaints except as documented and Yes Systems reviewed as appropriate & no additional complaints except as documented Physical Exam General General appearance: alert and in no apparent distress Head Head exam: atraumatic, normocephalic and normal inspection Eye Eye exam: Present normal appearance, PERRL and EOMI; Absent scleral icterus ENT ENT exam: Present normal exam and normal external ear exam Neck Neck exam: Present normal inspection and full ROM Chest Chest inspection: Present normal inspection and symmetric chest wall rise Respiratory Respiratory exam: Present normal lung sounds bilaterally; Absent respiratory distress or wheezes Cardiovascular Cardiovascular exam: Present regular rate, normal rhythm and normal heart sounds Abdominal Exam Abdominal exam: Present soft and distention; Absent tenderness, guarding or rebound Extremities Exam Extremities exam: Present normal inspection and full ROM Back Exam Back exam: Present normal inspection, full ROM and straight leg raise (R) (Right-sided paraspinal and midline lumbar spine tenderness positive straight leg on the right) Neurological Exam Neurological exam: Present alert and oriented X3 Psychiatric Psychiatric exam: Present normal affect and normal mood Skin Skin exam: Present warm and dry Medical Decision Making Medical Records Medical records reviewed: Yes I reviewed the patient's medical records. Screening: Per USPSTF and CDC recommendations, given the prevalence of disease in our region, it is our hospital?s policy to screen for HIV and viral Hepatitis for all patients aged 18 and over and those with ongoing risk factors. Niranjan Inquiry Pt receiving controlled substance: No Vital Signs: 06/25/25 20:04 06/26/25 00:15 Temperature 98.6 F 98.1 F Temperature Source Oral Oral Pulse Rate 62 Pulse Rate [Left] 76 Respiratory Rate 17 16 Blood Pressure 134/62 Blood Pressure [Right Arm] 158/107 H Blood Pressure Mean [Right Arm] 124 Blood Pressure Source [Right Arm] Automatic Cuff Blood Pressure Position Sitting Blood Pressure Position [Right Arm] Sitting 02 Sat by Pulse Oximetry 98 Oxygen Delivery Method Room Air Room Air Lab Data Lab results reviewed: Yes I reviewed the patient's lab results. Lab Results 06/25/25 20:20: Urine Color Yellow, Urine Appearance Clear, Urine pH 6.5, Ur Specific [place] 1.015, Urine Protein Negative, Urine Glucose (UA) Negative, Urine Ketones Negative, Urine Blood Trace-i, Urine Nitrate Negative, Urine Bilirubin Negative, Urine Urobilinogen 0.2, Ur Leukocyte Esterase Negative, Urine RBC Occasional, Urine WBC 3-5, Ur Squamous Epith Cells 3-5, Urine Bacteria 3+ 06/25/25 21:03: WBC 10.9 H, RBC 4.69, Hgb 14.8, Hct 42.9, MCV 91.5, MCH 31.6 H, MCHC 34.5, RDW 13.4, Plt Count 229, MPV 10.3, Neut % (Auto) 56.6, Lymph % (Auto) 32.6, [place] % (Auto) 8.1, Eos % (Auto) 1.8, Baso % (Auto) 0.6, Neut # (Auto) 6.2, Lymph # (Auto) 3.6, [place] # (Auto) 0.9, Eos # (Auto) 0.2, Baso # (Auto) 0.1, Sodium 134 L, Potassium 3.7, Chloride 108 H, Carbon Dioxide 20 L, Anion Gap 9.7, BUN 8, Creatinine 0.60, Estimated Creat Clear 124, Estimated GFR 110, Est GFR ( Amer) 133, Glucose 109 H, Calcium 9.3, Total Bilirubin 0.6, AST 25, ALT 18, Alkaline Phosphatase 70, Total Protein 7.7, Albumin 4.3, Globulin 3.4 H, Albumin/Globulin Ratio 1.3, Serum HCG, Qual Negative, HCV Ab CLAUDIA w/Rflx PCR Qn Negative, HIV Ag/Ab Combo Qual Negative 06/25/25 21:03 06/25/25 21:03 Orders (Tests/Meds): ED MEDICATIONS Discontinued Medications Generic Name Dose Route Start Last Admin Trade Name Freq PRN Reason Stop Dose Admin Acetaminophen 1,000 mg 06/25/25 20:48 06/25/25 20:58 Acetaminophen 500mg Tab PO 06/25/25 20:49 1,000 mg ONCE ONE Administration Ceftriaxone Sodium 1 gm/ 50 mls @ 100 mls/hr 06/25/25 22:45 06/25/25 22:56 Sodium Chloride IV 07/05/25 22:44 100 mls/hr Q24H LIZBETH Administration Ketorolac Tromethamine 30 mg 06/25/25 20:48 06/25/25 20:59 Ketorolac 30mg/Ml Vial IV 06/25/25 20:49 30 mg ONCE ONE Administration Lidocaine 1 each 06/25/25 20:48 06/25/25 20:59 Lidocaine 5% Transdermal Patch TD 06/25/25 20:49 1 each ONCE ONE Administration Methocarbamol 500 mg 06/25/25 20:51 06/25/25 20:59 Methocarbamol 500mg Tablet PO 06/25/25 20:52 500 mg ONCE ONE Administration Morphine Sulfate 4 mg 06/25/25 22:41 06/25/25 22:56 Morphine 4mg/Ml Syringe IV 06/25/25 22:42 4 mg ONCE ONE Administration Oxycodone HCl 5 mg 06/25/25 20:48 Oxycodone 5mg Immediate Release Tablet PO 07/25/25 20:47 Q6HP PRN Severe Pain (7-10) ORDERS Category Date Time Status CT lumbar spine wo con Stat Cat Scan 06/25/25 20:48 Completed Pelvis XR 1-2 views [XR pelvis 1-2V] Stat Exams 06/25/25 20:48 Completed CBC w/Auto Diff [Complete Blood Count Auto Diff] Stat Lab 06/25/25 21:03 Completed CMP [Comprehensive Metabolic Panel] Stat Lab 06/25/25 21:03 Completed HCG Qualitative, Serum Stat Lab 06/25/25 21:03 Completed HIV Combo Stat Lab 06/25/25 21:03 Completed Hepatitis C Ab Qual. W/ RFX Stat Lab 06/25/25 21:03 Completed UA [Urinalysis and Microscopic] Stat Lab 06/25/25 20:20 Completed Urine Culture Stat Micro 06/25/25 20:20 Completed Medical Decision Narrative: Patient is an otherwise healthy 39-year-old female who presented to the emergency department with lower back pain and right sided paraspinal pain. On arrival, patient was hemodynamically stable, vital signs. Differential includes but not limited to sciatica, herniated disc, musculoskeletal pain, urinary tract infection, pyonephritis, musculoskeletal spasm, fracture, amongst others. Patient's labs were reviewed and interpreted by myself: CBC showed no leukocytosis, hemoglobin stable. CMP is unremarkable. test is negative. Urine had significant bacteria, white blood cells. Patient labs x-ray was reviewed and interpreted by myself and showed no acute pathology. CT of the lumbar spine showed degenerative disc disease with a small herniation. Patient was treated symptomatically in the emergency department, patient had significant improvement in her pain. Patient was given a prescription for Bactrim for her urinary tract infection given that she was symptomatic with significant bacteria and likely cells on her UA. Patient was sent with pain management for her back pain. At this time, patient was discharged home in stable condition return precautions were discussed. Critical Care Critical Care Time Critical Care Time: No
[2025-06-25 20:57] LABS: Bacteria,Urine 3+ /lpf; RBC,Urine Occasional #/hpf (0-3)
[2025-06-25] MEDS: ACETAMINOPHEN 500MG TAB 1000 MG PO (20:58)
[2025-06-25] MEDS: KETOROLAC 30MG/ML VIAL 30 MG IV (20:59)
[2025-06-25] MEDS: LIDOCAINE 5% TRANSDERMAL PATCH 1 EACH TD (20:59)
[2025-06-25] MEDS: METHOCARBAMOL 500MG TABLET 500 MG PO (20:59)
[2025-06-25 21:13] LABS: Hematocrit 42.9 % (37.0-47.0); Hemoglobin 14.8 g/dL (12.2-16.2); Immature Granulocytes % 0.3 %; Mean Corpuscular HGB Conc 34.5 g/dL (31.8-35.4); Mean Corpuscular Hemoglobin 31.6 pg (27.0-31.2); Mean Corpuscular Volume 91.5 fl (81-99); Nucleated Red Blood Cells % 0 %; Platelet Count 229 K/mm3 (142-424); Red Blood Count 4.69 M/mm3 (4.20-5.40); Red Cell Distribution Width-SD 45.0 fL; White Blood Count 10.9 K/mm3 (4.8-10.8)
[2025-06-25 21:26] LABS: Alanine Aminotransferase 18 U/L (12-78); Albumin Level 4.3 g/dl (3.5-5.0); Albumin/Globulin Ratio 1.3 (1.1-1.8); Alkaline Phosphatase 70 U/L (38-126); Anion Gap 9.7 mEq/L (5-15); Aspartate Amino Transferase 25 U/L (14-36); Bilirubin,Total 0.6 mg/dl (0.2-1.3); Blood Urea Nitrogen 8 mg/dl (7-17); Calcium 9.3 mg/dl (8.4-10.2); Carbon Dioxide 20 mmol/L (22.0-30.0); Chloride 108 mmol/L (98-107); Creatinine Clearance Estimated 124 mL/min (50-200); Creatinine,Serum 0.60 mg/dl (0.52-1.04); Estimated Glomerular Filt Rate 110 ml/min (>60); GFR (African American) 133 ML/MIN (>60); Globulin 3.4 g/dL (1.3-3.2); Glucose 109 mg/dl (74-100); Potassium 3.7 mmoL/L (3.5-5.1); Sodium 134 mmol/L (136-145); Total Protein,Serum 7.7 g/dl (6.3-8.2)
[2025-06-25 21:35] LABS: HCG Qualitative, Serum Negative (Negative)
[2025-06-25] MEDS: CEFTRIAXONE 1 GM 1 GM in 0.9 % SODIUM CHLORIDE 50 ML IV (22:56)
[2025-06-25] MEDS: MORPHINE 4MG/ML SYRINGE 4 MG IV (22:56)
[2025-06-26 00:08] LABS: Hepatitis C Ab Qual. W/ RFX NEGATIVE (Negative)
[2025-06-26 00:15] VITALS: BP 134/62; PULSE 62; RESP 16; TEMP 36.7; O2SAT 96
--- NOTE | 2025-06-28 09:32 | PC.NURSE ---
I discussed the pts final urine culture with . No change needed to her treatment.
== END 2025-06-26 00:16 | disposition home or self-care (01) ==
PROVIDERS: Emergency Provider Student in an Organized Health Care Education/Training Program; PCP Internal Medicine
DX: N39.0 Urinary tract infection, site not specified (principal); M51.360 Other intervertebral disc degeneration, lumbar region with discogenic back pain only
CPT/HCPCS: 72131; 72170; 80053; 81001; 84703; 85025; 86803; 87086; 87088; 87186; 87389; 96365; 96366; 96375; 99284; J0696; J1885; J2270